=== PATIENT | female | born 1950 | race Caucasian/White ===

== ENCOUNTER → 2020-04-27 | Outpatient (CLI) | payer MEDICARE ==
[~2020-04-27] MED LIST: ALPRAZOLAM0.25 MG PO; ATENOLOL50 MG PO; CALCIUM 600 +1 EAC7 PO; CRESTOR 10 MG T10 MG PO; DOCUSATE SODIU250 MG PO; HYDROCODON-ACE1 EAC4 PO; IBUPROFEN600 MG PO; LANSOPRAZOLE30 MG PO; LOSARTAN POTAS100 MG PO; POTASSIUM CHLO20 ME1 PO; SERTRALINE HCL50 MG PO
[2020-04-27 12:07] LABS: HEMOGLOBIN 14.1 gm/dl (12.3-15.3); RED BLOOD COUNT 4.8 M/UL (4.00-5.10); WHITE BLOOD COUNT 6.1 K/UL (4.5-11.0)
[2020-04-27 12:25] LABS: BUN/CREATININE RATIO 17 (0-10)
== END ==
LOC: OPSV2 10:00
PROVIDERS: Obstetrics & Gynecology
DX: Z01.818 Encounter for other preprocedural examination (principal); N81.9 Female genital prolapse, unspecified; I44.0 Atrioventricular block, first degree; R00.1 Bradycardia, unspecified
CPT/HCPCS: 71046; 80048; 81001; 85025; 93005

== ENCOUNTER 2020-05-03 07:24 | Day surgery (SDC) | payer MEDICARE ==
[~2020-05-03] VITALS: Ht 152.4 cm; Wt 63.5 kg
[2020-05-03] MEDS ORDERED: LANSOPRAZOLE30 MG PO (08:16)
[2020-05-03] MEDS ORDERED: CALCIUM 600 +1 EAC7 PO (08:16)
[2020-05-03] MEDS ORDERED: SERTRALINE HCL50 MG PO (08:16)
[2020-05-03] MEDS ORDERED: ALPRAZOLAM0.25 MG PO (08:17)
[2020-05-03] MEDS ORDERED: LOSARTAN POTAS100 MG PO (08:18)
[2020-05-03] MEDS ORDERED: ATENOLOL50 MG PO (08:18)
[2020-05-03] MEDS ORDERED: CRESTOR 10 MG T10 MG PO (08:18)
[2020-05-03] MEDS ORDERED: POTASSIUM CHLO20 ME1 PO (08:19)
[2020-05-04 03:45] LABS: HEMOGLOBIN 10.3 gm/dl (12.3-15.3)
[2020-05-04 03:48] LABS: BUN/CREATININE RATIO 20 (0-10)
[2020-05-04] MEDS ORDERED: IBUPROFEN600 MG PO (09:12)
[2020-05-04] MEDS ORDERED: HYDROCODON-ACE1 EAC4 PO (09:12)
[2020-05-04] MEDS ORDERED: DOCUSATE SODIU250 MG PO (09:12)
== END 2020-05-04 12:45 | disposition home or self-care (01) ==
LOC: OR 07:24 → M/S 16:03 → OR 05-04 12:45
PROVIDERS: Obstetrics & Gynecology
DX: N81.9 Female genital prolapse, unspecified (principal); D25.9 Leiomyoma of uterus, unspecified; E78.5 Hyperlipidemia, unspecified; K21.9 Gastro-esophageal reflux disease without esophagitis; I10 Essential (primary) hypertension; Z88.8 Allergy status to other drugs, medicaments and biological substances; Z98.51 Tubal ligation status; Z79.899 Other long term (current) drug therapy
CPT/HCPCS: 36415; 80048; 85014; 85018; C1769; J0690; J1100; J1644; J2001; J2250; J2405; J2704; J2710; J3010; J7050; J7120

== ENCOUNTER → 2021-06-28 | Outpatient (CLI) | payer MEDICARE | LOC: EXRD 06-21 14:00 | DX: M85.88 Other specified disorders of bone density and structure, other site (principal); Z78.0 Asymptomatic menopausal state | CPT/HCPCS: 77080 ==